=== PATIENT | female | born 1990 | race Caucasian/White ===

== ENCOUNTER 2021-10-13 09:56 | Outpatient (CLI) | payer OTHER | END 2021-10-13 09:57 | disposition home or self-care (01) | LOC: BICRAD 09:56 | PROVIDERS: ATTEND Neurological Surgery | DX: M43.16 Spondylolisthesis, lumbar region (principal) | CPT/HCPCS: 72110 ==

== ENCOUNTER 2021-11-14 05:37 | Day surgery (SDC) | payer OTHER ==
[2021-11-10 12:24] VITALS: BMI 22.2
[2021-11-14] MEDS ORDERED: Dexmedetomidine 200 MCG/2 ML VIAL ONE (06:06)
[2021-11-14] MEDS ORDERED: Fentanyl 100 MCG/2 ML VIAL ONE ×2 (06:06→13:29)
[2021-11-14] MEDS ORDERED: EPINEPHrine 1 MG/ML AMP ONE (06:11)
[2021-11-14] MEDS ORDERED: Thrombin 5000 UNITS/5 ML VIAL ONE (06:11)
[2021-11-14] MEDS ORDERED: Neomycin-Polymyxin 1 ML AMP ONE (06:11)
[2021-11-14] MEDS ORDERED: Bupivacaine PF 0.5% 30 ML VIAL ONE (06:11)
[2021-11-14] MEDS ORDERED: Levofloxacin 500 mg/D5W 100 ml Premix Bag ONE (06:35)
[2021-11-14] MEDS ORDERED: Clindamycin/D5W 900 mg/50 ml Premix Bag ONE (06:35)
[2021-11-14] MEDS ORDERED: Scopolamine 1.5 mg/72 hour Patch ONE (06:35)
[2021-11-14 06:49] LABS: Hemoglobin 12.5 g/dL (12.0-16.0); Mean Corpuscular HGB CONC 33.9 g/dL (32.0-36.0); Mean Corpuscular Hemoglobin 32.7 pg (27.0-31.0); Mean Corpuscular Volume 96.5 fL (78.0-98.0); Mean Platelet Volume 6.8 fL (7.4-10.4); Platelet Count 209 thou/uL (130-400); Red Blood Cell (RBC) Count 3.81 mill/uL (4.20-5.40); White Blood Cell (WBC) Count 5.6 thou/uL (4.8-10.8)
[2021-11-14 06:58] LABS: BHCG - Serum Negative (NEGATIVE); Pregs Control Background? CLEAR/WHITE (CLR/WHITE); Pregs Control Bar Appear? YES (CONTROL BAR)
[2021-11-14 07:01] LABS: INR-International Normal Ratio 1.1; PTT 28.9 sec (22.9-36.1); Prothrombin Time 14.4 sec (12.0-14.7)
[2021-11-14] MEDS ORDERED: ePHEDrine 50 MG/ML VIAL ONE (07:11)
[2021-11-14] MEDS ORDERED: Ondansetron PF 4 MG/2 ML Vial ONE ×2 (07:11→13:51)
[2021-11-14] MEDS ORDERED: Phenylephrine 10 MG/ML VIAL ONE (07:11)
[2021-11-14] MEDS ORDERED: Glycopyrrolate 0.2 MG/ML 5 ML SYRINGE ONE (07:11)
[2021-11-14] MEDS ORDERED: Dexamethasone 20 MG/5 ML VIAL ONE (07:11)
[2021-11-14] MEDS ORDERED: Rocuronium Bromide 10 MG/ML (10ML VIAL) ONE (07:11)
[2021-11-14] MEDS ORDERED: Lidocaine 1% PF 5 ML VIAL ONE (07:11)
[2021-11-14] MEDS ORDERED: PROPOFOL 200 MG/20 ML VIAL ONE (07:11)
[2021-11-14] MEDS ORDERED: HYDROmorphone 2 MG/ML VIAL ONE (08:07)
[2021-11-14] MEDS ORDERED: Promethazine HCl 25 MG/ML VIAL ONE (13:55)
[2021-11-14] MEDS ORDERED: HYDROcodone/Acetaminophen 5/325 mg Tablet ONE (15:04)
[2021-11-14] MEDS ORDERED: Ondansetron ODT 4 MG TAB ONE (16:23)
== END 2021-11-14 16:45 | disposition home or self-care (01) ==
LOC: SDC 05:37
PROVIDERS: ATTEND Neurological Surgery
PROC: 0SG00AJ Fusion of Lumbar Vertebral Joint with Interbody Fusion Device, Posterior Approach, Anterior Column, Open Approach (ICD-10-PCS; principal; 2021-11-14)
DX: M43.16 Spondylolisthesis, lumbar region (principal); M51.9 Unspecified thoracic, thoracolumbar and lumbosacral intervertebral disc disorder; M19.90 Unspecified osteoarthritis, unspecified site; Z86.16 Personal history of COVID-19; Z79.899 Other long term (current) drug therapy; Z88.0 Allergy status to penicillin; Z98.890 Other specified postprocedural states
CPT/HCPCS: 36415; 76000; 84703; 85027; 85610; 85730; C1713; C1768; C1776; J0171; J1100; J1170; J1956; J2370; J2405; J2550; J2704; J3010; J3370; J3490; Q0162; S0020

== ENCOUNTER 2022-01-16 08:19 | Outpatient (CLI) | payer OTHER | END 2022-01-16 08:20 | disposition home or self-care (01) | LOC: BICRAD 08:19 | PROVIDERS: ATTEND Neurological Surgery | DX: M43.16 Spondylolisthesis, lumbar region (principal); Z98.1 Arthrodesis status | CPT/HCPCS: 72100 ==